=== PATIENT | female | born 1995 | race Caucasian/White ===

== ENCOUNTER 2017-10-31 11:24 | Emergency (ER) | payer OTHER ==
[2017-10-31 11:41] VITALS: BP 115/89; PULSE 83; RESP 16; TEMP 98.2; O2SAT 96
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
== END 2017-10-31 12:26 | disposition home or self-care (01) ==
DX: S93.401A Sprain of unspecified ligament of right ankle, initial encounter (principal); F17.200 Nicotine dependence, unspecified, uncomplicated; J45.909 Unspecified asthma, uncomplicated; W18.39XA Other fall on same level, initial encounter; Y99.8 Other external cause status
CPT/HCPCS: L4386